=== PATIENT | female | born 1965 | race Caucasian/White ===

== ENCOUNTER 2021-02-18 21:20 | Emergency (ER) | payer OTHER ==
[~2021-02-18] VITALS: Ht 170.2 cm; Wt 129.3 kg
[2021-02-18 21:53] LABS: BASOPHILS ABSOLUTE AUTO 0.06 K/mm3 (0.00-0.23); BASOPHILS PERCENT AUTO 0 % (0-2); EOSINOPHILS ABSOLUTE AUTO 0.08 K/mm3 (0.00-0.68); EOSINOPHILS PERCENT AUTO 0 % (0-6); IMMATURE GRAN ABSOLUTE AUTO 0.09 K/mm3 (0.00-0.10); IMMATURE GRAN PERCENT AUTO 1 % (0-1); LYMPHOCYTES ABSOLUTE AUTO 1.96 K/mm3 (0.84-5.20); LYMPHOCYTES PERCENT AUTO 11 % (21-46); MONOCYTES ABSOLUTE AUTO 1.13 K/mm3 (0.16-1.47); MONOCYTES PERCENT AUTO 6 % (4-13); Mean Corpuscular HGB 28.2 pg (26.0-34.0); Mean Corpuscular HGB Conc 33.3 g/dL (31.5-36.5); Mean Corpuscular Volume 85 fL (80-100); Mean Platelet Volume 9.8 fL (9.1-12.4); NEUTROPHILS ABSOLUTE AUTO 15.18 K/mm3 (1.96-9.15); NEUTROPHILS PERCENT AUTO 82 % (41-73); Platelet Count 487 K/mm3 (150-400); RDW Coefficient Variation 13.4 % (11.7-14.2); RDW Standard Deviation 41.2 fL (35.1-46.3); Red Blood Cell Count 4.97 M/mm3 (3.80-5.20)
[2021-02-18 22:10] LABS: Alanine Aminotransfer (ALT/SGP 709 U/L (12-78); Albumin, Blood 3.8 g/dL (3.4-5.0); Albumin/Globulin Ratio 0.9 (0.8-1.8); Alk Phos 343 U/L (50-136); Anion Gap 9 mmol/L (6-16); Aspartate Aminotrans (AST/SGOT 307 U/L (12-37); Bilirubin, Total 3.6 mg/dL (0.1-1.0); Blood Urea Nitrogen 19 mg/dL (8-24); Bun/Creatinine Ratio 15.4 (12.0-20.0); CO2, Blood 19 mmol/L (21-32); Calcium, Blood 9.4 mg/dL (8.5-10.1); Chloride, Blood 111 mmol/L (98-108); Creatinine, Blood 1.23 mg/dL (0.40-1.00); Globulin, Blood 4.2 g/dL (2.2-4.0); Glomerular Filtration Rate 48 (60-); Glucose, Blood 191 mg/dL (70-99); Potassium, Blood 3.5 mmol/L (3.5-5.5); Sodium, Blood 139 mmol/L (136-145)
[2021-02-19 03:50] LABS: Source, Urine Clean Catch
[2021-02-19 03:53] LABS: Blood, Urine 2+ (Neg); Glucose Qualitative, Urine Neg (Neg); Ketones, Urine Neg (Neg); Leukocyte Esterase, Urine 2+ (Neg); Nitrite, Urine Neg (Neg); Protein, Urine 2+ (Neg); Specific Gravity, Urine 1.015 (1.003-1.022); Urobilinogen, Urine 2+ (Normal)
[2021-02-19 04:08] LABS: Appearance, Urine Hazy (Clear); Bilirubin, Urine 1+ (Neg); Color, Urine Yellow (P-Yellow)
[2021-02-19 04:09] LABS: Bacteria Mod /hpf; Squamous Epithelial Cells Few /hpf (Few); White Blood Cells, Urine 50-100 /hpf (0-5)
[2021-02-19 04:53] LABS: Influenza A, PCR NEGATIVE (NEGATIVE); Influenza B, PCR NEGATIVE (NEGATIVE); Resp Syncytial Virus, PCR NEGATIVE (NEGATIVE); SARS-Cov-2 (COVID-19) PCR, MMC NEGATIVE (NEGATIVE)
== END 2021-02-19 04:49 | disposition short-term general hospital (02) ==
LOC: ER 21:20
PROVIDERS: Emergency Medicine; Physician Assistant
DX: K83.09 Other cholangitis (principal); I10 Essential (primary) hypertension; Z20.822 Contact with and (suspected) exposure to COVID-19
CPT/HCPCS: 0241U; 74177; 80053; 81001; 83690; 85025; 87086; 96365; 96366; 96375; 96376; 99285-25; J1170; J2543; J7030; J7120; Q9967

== ENCOUNTER → 2022-04-08 | Outpatient (CLI) | payer OTHER | END | disposition home or self-care (01) | LOC: LAB SHORT 16:36 → LAB 16:36 | DX: N39.0 Urinary tract infection, site not specified (principal) | CPT/HCPCS: 87086 ==

== ENCOUNTER → 2023-01-12 | Outpatient (CLI) | payer OTHER | LOC: LAB 15:20 → LAB SHORT 15:20 | DX: G89.4 Chronic pain syndrome (principal) | CPT/HCPCS: G0480 ==

== ENCOUNTER 2023-05-23 19:10 | Emergency (ER) | payer OTHER ==
[~2023-05-23] VITALS: Ht 170.2 cm; Wt 170.1 kg
[2023-05-23 19:53] LABS: BASOPHILS ABSOLUTE AUTO 0.04 K/mm3 (0.00-0.23); BASOPHILS PERCENT AUTO 1 % (0-2); EOSINOPHILS ABSOLUTE AUTO 0.28 K/mm3 (0.00-0.68); EOSINOPHILS PERCENT AUTO 3 % (0-6); Hematocrit 37.9 % (33.0-51.0); Hemoglobin 12.6 g/dL (11.5-16.0); IMMATURE GRAN ABSOLUTE AUTO 0.03 K/mm3 (0.00-0.10); IMMATURE GRAN PERCENT AUTO 0 % (0-1); LYMPHOCYTES ABSOLUTE AUTO 2.44 K/mm3 (0.84-5.20); LYMPHOCYTES PERCENT AUTO 30 % (21-46); MONOCYTES ABSOLUTE AUTO 0.43 K/mm3 (0.16-1.47); MONOCYTES PERCENT AUTO 5 % (4-13); Mean Corpuscular HGB 28.5 pg (26.0-34.0); Mean Corpuscular HGB Conc 33.2 g/dL (31.5-36.5); Mean Corpuscular Volume 86 fL (80-100); NEUTROPHILS ABSOLUTE AUTO 4.94 K/mm3 (1.96-9.15); NEUTROPHILS PERCENT AUTO 61 % (41-73); Platelet Count 334 K/mm3 (150-400); RDW Coefficient Variation 12.7 % (11.7-14.2); RDW Standard Deviation 39.6 fL (35.1-46.3); Red Blood Cell Count 4.42 M/mm3 (3.80-5.20); White Blood Cell Count 8.16 K/mm3 (4.00-11.30)
[2023-05-23 20:11] LABS: Albumin, Blood 3.4 g/dL (3.4-5.0); Albumin/Globulin Ratio 0.8 (0.8-1.8); Bilirubin, Total 0.6 mg/dL (0.1-1.0); Bun/Creatinine Ratio 25.9 (12.0-20.0); Calcium, Blood 8.8 mg/dL (8.5-10.1); Creatinine, Blood 0.85 mg/dL (0.40-1.00); Potassium, Blood 3.8 mmol/L (3.5-5.5); Total Protein, Blood 7.4 g/dL (6.4-8.2)
[2023-05-23 23:13] LABS: Source, Urine Voided
[2023-05-23 23:18] LABS: Bilirubin, Urine Neg (Neg); Blood, Urine Neg (Neg); Glucose Qualitative, Urine Neg (Neg); Ketones, Urine Neg (Neg); Leukocyte Esterase, Urine 2+ (Neg); Nitrite, Urine Neg (Neg); Protein, Urine Neg (Neg); Specific Gravity, Urine 1.015 (1.003-1.022); Urobilinogen, Urine 1+ (Normal)
[2023-05-23 23:36] LABS: Appearance, Urine Hazy (Clear); Color, Urine Yellow (P-Yellow)
[2023-05-23 23:37] LABS: Bacteria Few /hpf; Red Blood Cells, Urine Not Seen /hpf (0-2); Squamous Epithelial Cells Rare /hpf (Few)
[2023-05-24] MEDS ORDERED: CEFP200 PO (00:33)
[2023-05-24 00:45] VITALS: BP 160/79
== END 2023-05-24 01:05 | disposition home or self-care (01) ==
LOC: ER 19:10
PROVIDERS: Student in an Organized Health Care Education/Training Program
DX: N12 Tubulo-interstitial nephritis, not specified as acute or chronic (principal); Z88.2 Allergy status to sulfonamides; I10 Essential (primary) hypertension
CPT/HCPCS: 74177; 80053; 81001; 83690; 85025; 87086; 96374; 99284-25; A9270; J1885; Q9967

== ENCOUNTER 2024-05-14 09:11 | Day surgery (SDC) | payer OTHER ==
[~2024-05-14] VITALS: Ht 165.1 cm; Wt 128.5 kg
[2024-05-14] VITALS (13 sets, daily range): BP systolic 98–157; BP diastolic 61–121
[~2024-05-14 09:11] MED LIST: CEFP200 PO; Cyclobenzaprine5 MG PO; LOSA50 PO; MELO7.5 PO; Norco 5-325 Ta1 EACH PO; SUMA25 PO; TOPI50 PO
[2024-05-14] MEDS ORDERED: CeFAZolin Sodium 3,000 MG in NS 100 ML IV SCH (09:20)
[2024-05-14] MEDS ORDERED: Lactated Ringer's 1,000 ML IV SCH ×2 (09:20→14:40)
--- NOTE | 2024-05-14 10:49 | NUR ---
Ambulatory in Day Surgery History, Chart, Medications and Allergies reviewed before start of procedure.Lungs clear T/O to Auscultation. Patient confirms NPO status and agrees with scheduled surgery. Patient reports completing Chlorhexadine shower X2 prior to admission to hospital.Surgical site prepped with 2% Chlorhexidine cloth wipe.
[2024-05-14] MEDS ORDERED: Bupivacaine 0.5% Inj 50 ML Vial ONE (11:01)
[2024-05-14] MEDS ORDERED: FentaNYL Citrate 50 MCG/ML 2 ML Injection ONE ×2 (11:21→14:36)
[2024-05-14] MEDS ORDERED: Midazolam HCl 1MG / ML 2ML Vial ONE (11:21)
[2024-05-14] MEDS ORDERED: propofoL 20 ML IV ONE (11:24)
[2024-05-14] MEDS ORDERED: HYDROmorphone HCl/Pf 1MG SYR ONE (13:42)
[2024-05-14] MEDS ORDERED: Dexamethasone Sod Phos 10 MG/ML 1ML VIAL ONE (13:45)
[2024-05-14] MEDS ORDERED: Ketorolac Tromethamine 30mg Vial ONE (13:45)
[2024-05-14] MEDS ORDERED: Sugammadex Sodium 200 MG/2ML SDV (100 MG/ML) ONE (13:45)
[2024-05-14] MEDS ORDERED: Ondansetron HCl 2 MG / ML 2ML Vial ONE (13:45)
[2024-05-14] MEDS ORDERED: Lidocaine HCl 2% 20 ML MDV ONE (13:45)
[2024-05-14] MEDS ORDERED: Rocuronium Bromide 10 MG/ML 5ML Injection IV ONE (13:45)
[2024-05-14] MEDS ORDERED: Naloxone HCl 0.4MG / ML 1ML Vial IV PRN (14:40)
[2024-05-14] MEDS ORDERED: OxyCODONE HCL 5 MG TAB PO PRN ×3 (14:40→14:55)
[2024-05-14] MEDS ORDERED: Metoclopramide HCl 5MG / ML 2ML Vial IV PRN (14:40)
[2024-05-14] MEDS ORDERED: HYDROmorphone HCl/Pf 1MG SYR IV PRN (14:45)
[2024-05-14] MEDS ORDERED: DiphenhydrAMINE HCL 25 MG Cap PO PRN (14:45)
[2024-05-14] MEDS ORDERED: SUMAtriptan Succinate 25 MG Tab PO PRN (14:50)
[2024-05-14] MEDS ORDERED: Cyclobenzaprine HCl 10 MG Tab PO PRN (14:50)
[2024-05-14] MEDS ORDERED: Simethicone 80 MG Chew PO PRN (14:50)
[2024-05-14] MEDS ORDERED: Ibuprofen 400 MG Tab PO SCH (16:00)
[2024-05-14] MEDS ORDERED: Ketorolac Tromethamine 15mg Vial IV SCH ×2 (18:00→22:00)
[2024-05-14] MEDS ORDERED: Acetaminophen 500 MG Tab PO SCH (18:00)
--- NOTE | 2024-05-14 18:42 | NUR ---
SUMMARY NO ACUTE CHANGES SINCE ARRIVING TO FLOOR. MEDICATED PER ORDERS FOR PAIN. PT HAS BEEN UP TO VOID. ATE DINNER. NOW TALKING ON PHONE. CALL LIGHT IN REACH.
[2024-05-14] MEDS ORDERED: Topiramate 25 MG Tab PO SCH (21:00)
[2024-05-15 05:22] VITALS: BP 126/73
[2024-05-15 06:16] LABS: BASOPHILS ABSOLUTE AUTO 0.01 K/mm3 (0.00-0.23); BASOPHILS PERCENT AUTO 0 % (0-2); EOSINOPHILS PERCENT AUTO 0 % (0-6); Hematocrit 34.7 % (33.0-51.0); Hemoglobin 11.8 g/dL (11.5-16.0); IMMATURE GRAN ABSOLUTE AUTO 0.06 K/mm3 (0.00-0.10); IMMATURE GRAN PERCENT AUTO 0 % (0-1); LYMPHOCYTES ABSOLUTE AUTO 1.55 K/mm3 (0.84-5.20); LYMPHOCYTES PERCENT AUTO 10 % (21-46); MONOCYTES ABSOLUTE AUTO 0.84 K/mm3 (0.16-1.47); MONOCYTES PERCENT AUTO 6 % (4-13); Mean Corpuscular HGB 29.3 pg (26.0-34.0); Mean Corpuscular Volume 86 fL (80-100); Mean Platelet Volume 9.7 fL (9.1-12.4); NEUTROPHILS ABSOLUTE AUTO 12.51 K/mm3 (1.96-9.15); NEUTROPHILS PERCENT AUTO 84 % (41-73); Platelet Count 317 K/mm3 (150-400); RDW Standard Deviation 37.9 fL (35.1-46.3); Red Blood Cell Count 4.03 M/mm3 (3.80-5.20); White Blood Cell Count 14.97 K/mm3 (4.00-11.30)
--- NOTE | 2024-05-15 06:20 | NUR ---
SHIFT SUMMARY POD1- ROBOTIC LAP HYSTER. x4 LAP SITES W/GLUE C,D,I NO DRAINAGE NOTED. REPORTS 5/10 PAIN PRIOR TO MEDS THEN 2/10 PAIN IN LOW ABD POST MEDS. USING HEATING PAD ALSO FOR PAIN RELIEF. SCANT BLOOD ON CORRIE PAD. HAS VOIDED MULTIPLE TIMES, TOLERATING PO. DENIES N/V. HAD MIGRAINE @[facility], MEDICATED PER EMAR & DENIES MIGRAINE THIS AM. CALL LIGHT IN REACH, WILL MONITOR.
[2024-05-15 06:47] LABS: Bun/Creatinine Ratio 19.5 (12.0-20.0); Calcium, Blood 8.5 mg/dL (8.5-10.1); Creatinine, Blood 0.97 mg/dL (0.40-1.00); Potassium, Blood 4.2 mmol/L (3.5-5.5)
[2024-05-15 07:41] VITALS: BP 119/64
[2024-05-15] MEDS ORDERED: Losartan Potassium 50 MG Tab PO SCH (09:00)
[2024-05-15] MEDS ORDERED: Enoxaparin 40 MG/0.4 ML SYR SC SCH (09:00)
[2024-05-15] MEDS ORDERED: Polyethylene Glycol 3350 17 gm PO SCH (09:00)
[2024-05-15] MEDS ORDERED: Topiramate 25 MG Tab PO SCH (09:00)
--- NOTE | 2024-05-15 11:17 | NUR ---
DISCHARGING REVIEWED DC INSTRUCTIONS W/PT. VERBALIZED UNDERSTANDING. PROVIDED CORRIE BOTTLE PER DR SHELBY'S VERBAL INSTRUCTION AND INSTRUCTED PT ON USE. PT ATTEMPTING TO CONTACT RIDE HOME. CALL LIGHT IN REACH.
[2024-05-15 14:11] VITALS: BP 133/77
--- NOTE | 2024-05-15 14:19 | NUR ---
DISCHARGING PT IV DC'D, CATHETER INTACT. PT'S FAMILY UNABLE TO DATABASE ADMINISTRATION PROJECT MANAGER PT. DEVYN, ENVIRONMENTAL ATTORNEY, ARRANGED [facility]AX[facility] RIDE FOR PATIENT. PT LEFT UNIT IN WC W/POSSESSIONS AND DC PAPERWORK IN HAND TO MEET TAXI OUTSIDE.
== END 2024-05-15 14:21 | disposition home or self-care (01) ==
LOC: ORSCMMR 09:11 → ORD 10:30 → ORSCMMR 10:30 → ORD 12:00 → SURS 15:05 → ORSCMMR 05-15 14:21
PROVIDERS: Obstetrics & Gynecology
PROC: 0UT9FZZ Resection of Uterus, Via Natural or Artificial Opening With Percutaneous Endoscopic Assistance (ICD-10-PCS; principal; 2024-05-14 10:30)
PROC: 0UT7FZZ Resection of Bilateral Fallopian Tubes, Via Natural or Artificial Opening With Percutaneous Endoscopic Assistance (ICD-10-PCS; principal; 2024-05-14 10:30)
PROC: 0UT2FZZ Resection of Bilateral Ovaries, Via Natural or Artificial Opening With Percutaneous Endoscopic Assistance (ICD-10-PCS; principal; 2024-05-14 10:30)
DX: D25.2 Subserosal leiomyoma of uterus (principal); R10.2 Pelvic and perineal pain; N80.03 Adenomyosis of the uterus; N73.6 Female pelvic peritoneal adhesions (postinfective); I10 Essential (primary) hypertension; E66.01 Morbid (severe) obesity due to excess calories; Z68.42 Body mass index [BMI] 45.0-49.9, adult
CPT/HCPCS: 36415; 80048; 85025; 88307; 94762; A9270; J0690; J1100; J1170; J1650; J1885; J2250; J2405; J2704; J3010; J7120

== ENCOUNTER 2025-06-18 15:54 | Inpatient (IN) | payer OTHER ==
[~2025-06-18] VITALS: Ht 165.1 cm; Wt 89.6 kg
[2025-06-18] MEDS ORDERED: NS 1,000 ML IV SCH (16:40)
[2025-06-18 17:33] LABS: BASOPHILS ABSOLUTE AUTO 0.03 K/mm3 (0.00-0.23); BASOPHILS PERCENT AUTO 0 % (0-2); EOSINOPHILS ABSOLUTE AUTO 0.00 K/mm3 (0.00-0.68); EOSINOPHILS PERCENT AUTO 0 % (0-6); Hematocrit 40.3 % (33.0-51.0); Hemoglobin 13.8 g/dL (11.5-16.0); IMMATURE GRAN ABSOLUTE AUTO 0.06 K/mm3 (0.00-0.10); IMMATURE GRAN PERCENT AUTO 0 % (0-1); LYMPHOCYTES ABSOLUTE AUTO 0.91 K/mm3 (0.84-5.20); LYMPHOCYTES PERCENT AUTO 7 % (21-46); MONOCYTES ABSOLUTE AUTO 0.64 K/mm3 (0.16-1.47); MONOCYTES PERCENT AUTO 5 % (4-13); Mean Corpuscular HGB Conc 34.2 g/dL (31.5-36.5); Mean Corpuscular Volume 87 fL (80-100); NEUTROPHILS ABSOLUTE AUTO 12.44 K/mm3 (1.96-9.15); NEUTROPHILS PERCENT AUTO 88 % (41-73); NRBC ABSOLUTE 0.00 K/mm3 (0.00-0.02); NRBC Auto 0.0 /100 WBC (0.0-0.2); Platelet Count 293 K/mm3 (150-400); RDW Coefficient Variation 12.0 % (11.7-14.2); RDW Standard Deviation 38.8 fL (35.1-46.3)
[2025-06-18] MEDS ORDERED: Morphine Sulfate 4 MG/1 ML Injection IV ONE (17:55)
[2025-06-18] MEDS ORDERED: Ketorolac Tromethamine 15mg Vial IV ONE (17:55)
[2025-06-18] MEDS ORDERED: CefTRIAXone Sodium 1,000 MG in NS 100 ML IV ONE (18:00)
[2025-06-18 18:02] LABS: Alanine Aminotransfer (ALT/SGP 30.0 U/L (12-78); Albumin, Blood 3.5 g/dL (3.4-5.0); Albumin/Globulin Ratio 0.7 (0.8-1.8); Anion Gap 13.0 mmol/L (3-11); Aspartate Aminotrans (AST/SGOT 18.0 U/L (12-37); Bilirubin, Total 1.0 mg/dL (0.1-1.0); Blood Urea Nitrogen 23.0 mg/dL (8-24); CO2, Blood 18.0 mmol/L (21-32); Calcium, Blood 9.2 mg/dL (8.5-10.1); Chloride, Blood 106.0 mmol/L (98-108); Creatinine, Blood 1.13 mg/dL (0.40-1.00); Globulin, Blood 4.8 g/dL (2.2-4.0); Glucose, Blood 119.0 mg/dL (70-99); Potassium, Blood 3.5 mmol/L (3.5-5.5); Sodium, Blood 133.0 mmol/L (136-145); Total Protein, Blood 8.3 g/dL (6.4-8.2)
[2025-06-18] MEDS ORDERED: TOPI50 PO (20:17)
[2025-06-18] MEDS ORDERED: CENTRUM SILVER1 EAC2 PO (20:19)
[2025-06-18] MEDS ORDERED: OXYC5 PO (20:19)
[2025-06-18] MEDS ORDERED: CYCL10 PO (23:18)
[2025-06-18] MEDS ORDERED: Ondansetron HCl 2 MG / ML 2ML Vial IV PRN (23:30)
[2025-06-19 00:13] VITALS: BP 121/68
[2025-06-19 04:16] VITALS: BP 87/66
[2025-06-19 04:21] VITALS: BP 115/67
--- NOTE | 2025-06-19 04:22 | NUR ---
PT A&O X4, ADMITTED FROM ED WITH FACIAL CELLULITIS. STARTED ON RIGHT SIDE, INCLUDING SWOLLEN EYE, NOW MIGRATING TO LEFT SIDE. PAIN MEDICATED WITH OXYCODONE AND TYLENOL. PT VS WNL, B/P SLIGHTLY LOW, PT STATES SHE DOESN'T TAKE TOPAMAX ANYMORE, BUT THIS WAS ON MED LIST, WILL COMMUNICATE THIS TO MD ON DAY SHIFT. PT REMAINS ON IVF AND IVABX. INDEPENDENT WITH MOBILITY. PLAN FOR IVABX. USES CALL SYSTEM APPROPRIATELY.
[2025-06-19 07:56] VITALS: BP 121/73
[2025-06-19] MEDS ORDERED: Enoxaparin 40 MG/0.4 ML SYR SC SCH (09:00)
[2025-06-19 15:52] VITALS: BP 124/71
[2025-06-19] MEDS ORDERED: NS 250 ML IV PRN (17:40)
[2025-06-19] MEDS ORDERED: CefTRIAXone Sodium 1,000 MG in NS 100 ML IV SCH (18:00)
--- NOTE | 2025-06-19 18:37 | NUR ---
SHIFT SUMMARY: NO EVENTS OR CHANGES WITH THE PATIENT THROUGHOUT THE SHIFT. CONTINUES TO HAVE FACIAL PAIN; PAIN MEDICATION PER EMAR NOT EFFECTIVE AT TIMES. HYDROXYZINE EFFECTIVE FOR FACIAL ITCHING. CONTINUES TO GET IV ANTIBIOTICS; DR. LUIS MADE MARKINGS ON PATIENT'S FACE. PATIENT ALERT IN HER ROOM, CALL LIGHT WITHIN REACH, LAYING IN BED, NO SIGNS OR SYMPTOMS OF DISTRESS, PLAN OF CARE ONGOING.
[2025-06-19 19:42] VITALS: BP 110/64
--- NOTE | 2025-06-20 03:48 | NUR ---
SHIFT SUMMARY: PT IS AOX4. PT SLEPT THROUGH THE WHOLE SHIFT. MEDICATED PER EMAR. NO ACUTE CHANGES.
[2025-06-20 04:39] LABS: BASOPHILS ABSOLUTE AUTO 0.02 K/mm3 (0.00-0.23); BASOPHILS PERCENT AUTO 0 % (0-2); EOSINOPHILS ABSOLUTE AUTO 0.16 K/mm3 (0.00-0.68); EOSINOPHILS PERCENT AUTO 3 % (0-6); Hematocrit 33.7 % (33.0-51.0); Hemoglobin 11.6 g/dL (11.5-16.0); IMMATURE GRAN ABSOLUTE AUTO 0.02 K/mm3 (0.00-0.10); IMMATURE GRAN PERCENT AUTO 0 % (0-1); LYMPHOCYTES ABSOLUTE AUTO 2.84 K/mm3 (0.84-5.20); LYMPHOCYTES PERCENT AUTO 46 % (21-46); MONOCYTES ABSOLUTE AUTO 0.46 K/mm3 (0.16-1.47); MONOCYTES PERCENT AUTO 8 % (4-13); Mean Corpuscular HGB Conc 34.4 g/dL (31.5-36.5); Mean Corpuscular Volume 88 fL (80-100); NEUTROPHILS ABSOLUTE AUTO 2.63 K/mm3 (1.96-9.15); NEUTROPHILS PERCENT AUTO 43 % (41-73); NRBC ABSOLUTE 0.00 K/mm3 (0.00-0.02); NRBC Auto 0.0 /100 WBC (0.0-0.2); Platelet Count 239 K/mm3 (150-400); RDW Coefficient Variation 12.3 % (11.7-14.2); RDW Standard Deviation 39.6 fL (35.1-46.3)
[2025-06-20 04:58] VITALS: BP 123/80
[2025-06-20 04:59] LABS: Anion Gap 9.0 mmol/L (3-11); Blood Urea Nitrogen 15.0 mg/dL (8-24); CO2, Blood 21.0 mmol/L (21-32); Calcium, Blood 8.4 mg/dL (8.5-10.1); Chloride, Blood 114.0 mmol/L (98-108); Creatinine, Blood 0.83 mg/dL (0.40-1.00); Glucose, Blood 87.0 mg/dL (70-99); Potassium, Blood 3.3 mmol/L (3.5-5.5); Sodium, Blood 141.0 mmol/L (136-145)
[2025-06-20 07:44] VITALS: BP 114/69
[2025-06-20 19:08] VITALS: BP 104/65
--- NOTE | 2025-06-20 19:20 | NUR ---
SHIFT SUMMARY: NO EVENTS OR CHANGES WITH THE PATIENT THROUGHOUT THE SHIFT. IN HER BED, ALERT, CALLS APPROPRIATELY, CALL LIGHT WITHIN REACH, NO SIGNS OR SYMPTOMS OF DISTRESS, PLAN OF CARE ONGOING.
[2025-06-21 05:04] VITALS: BP 133/72
--- NOTE | 2025-06-21 06:14 | NUR ---
SHIFT SUMMARY PT SLEPT INTERMITTENTLY DURING THE NIGHT. UP INDEPENDENTLY IN ROOM. MEDICATED FOR PAIN AND ITCHING PER EMAR. IV ANTIBIOTICS CONTINUE PER ORDER. REDNESS TO FACE WITHIN OUTLINES- RIGHT SIDE REDNESS MUCH IMPROVED.
[2025-06-21 07:34] VITALS: BP 123/74
--- NOTE | 2025-06-21 16:50 | NUR ---
SHIFT SUMMARY: NO EVENTS OR CHANGES WITH THE PATIENT THROUGHOUT THE SHIFT. CONTINUES TO GET IV ANTIBIOTICS, AND PRNS FOR PAIN/ITCHING. CALL LIGHT WITHIN REACH, NO SIGNS OR SYMPTOMS OF DISTRESS, PLAN OF CARE ONGOING.
[2025-06-21 16:54] VITALS: BP 114/75
[2025-06-21 19:19] VITALS: BP 114/73
[2025-06-22 02:40] VITALS: BP 114/68
--- NOTE | 2025-06-22 06:10 | NUR ---
SHIFT SUMMARY CELLULITIS CONTINUES TO FACE. PT STATES SOME PAIN RELIEF USING ICE COLD WASHCLOTH TO FACE. MEDICATED FOR FACE AND BACK PAIN PER EMAR. PT SLEPT LONG INTERVALS DURING THE NIGHT. UP INDEPENDENTLY IN ROOM.
[2025-06-22 07:25] VITALS: BP 118/72
[2025-06-22 16:27] VITALS: BP 117/73
[2025-06-22 19:43] VITALS: BP 118/70
[2025-06-23 02:08] VITALS: BP 116/79
[2025-06-23 05:06] LABS: BASOPHILS ABSOLUTE AUTO 0.04 K/mm3 (0.00-0.23); BASOPHILS PERCENT AUTO 1 % (0-2); EOSINOPHILS ABSOLUTE AUTO 0.24 K/mm3 (0.00-0.68); EOSINOPHILS PERCENT AUTO 4 % (0-6); Hematocrit 35.9 % (33.0-51.0); Hemoglobin 12.0 g/dL (11.5-16.0); IMMATURE GRAN ABSOLUTE AUTO 0.05 K/mm3 (0.00-0.10); IMMATURE GRAN PERCENT AUTO 1 % (0-1); LYMPHOCYTES ABSOLUTE AUTO 3.32 K/mm3 (0.84-5.20); LYMPHOCYTES PERCENT AUTO 49 % (21-46); MONOCYTES ABSOLUTE AUTO 0.39 K/mm3 (0.16-1.47); MONOCYTES PERCENT AUTO 6 % (4-13); Mean Corpuscular HGB Conc 33.4 g/dL (31.5-36.5); Mean Corpuscular Volume 88 fL (80-100); NEUTROPHILS ABSOLUTE AUTO 2.80 K/mm3 (1.96-9.15); NEUTROPHILS PERCENT AUTO 41 % (41-73); NRBC ABSOLUTE 0.00 K/mm3 (0.00-0.02); NRBC Auto 0.0 /100 WBC (0.0-0.2); Platelet Count 327 K/mm3 (150-400); RDW Coefficient Variation 11.8 % (11.7-14.2); RDW Standard Deviation 38.0 fL (35.1-46.3)
[2025-06-23 05:25] LABS: Anion Gap 8.0 mmol/L (3-11); Blood Urea Nitrogen 15.0 mg/dL (8-24); CO2, Blood 25.0 mmol/L (21-32); Calcium, Blood 8.6 mg/dL (8.5-10.1); Chloride, Blood 112.0 mmol/L (98-108); Creatinine, Blood 0.86 mg/dL (0.40-1.00); Glucose, Blood 85.0 mg/dL (70-99); Potassium, Blood 3.9 mmol/L (3.5-5.5); Sodium, Blood 141.0 mmol/L (136-145)
--- NOTE | 2025-06-23 06:17 | NUR ---
SHIFT SUMMARY PT SLEPT LONG INTERVALS DURING THE NIGHT. MEDICATED FOR PAIN AND ITCHING PER EMAR. PT INDEPENDENT IN ROOM. CELLULITIS TO FACE CONTINUES TO IMPROVE.
[2025-06-23 07:53] VITALS: BP 122/72
[2025-06-23] MEDS ORDERED: AMOCLA875 PO (14:30)
--- NOTE | 2025-06-23 16:44 | NUR ---
DISCHARGE SUMMARY PT DISCHARGED BY PHYSICIAN. DISCUSSED INSTRUCTIONAL MATERIAL WITH PT AT BEDSIDE. IV REMOVED AND SITE DRESSED. VERIFIED PT HAS RIDE BENEFITS VIA A. TAXI PICKUP SCHEDULED FOR 1530 AT ED ENTRANCE. GIVEN COPY OF RX LIST, WRITTEN EDUCATION AND PROVIDER INSTRUCTIONS, AND VERIFIED BELONGINGS ARE WITH PT. TRANSPORT TO [facility] VIA WHEELCHAIR PROVIDED BY [facility].
== END 2025-06-23 15:21 | disposition home or self-care (01) | DRG 603 ==
LOC: ER 15:54 → ERHOLD 15:55 → MEDS 15:55
PROVIDERS: Internal Medicine; Student in an Organized Health Care Education/Training Program; ADMIT Internal Medicine
DX: A46 Erysipelas (principal); L03.211 Cellulitis of face; E87.1 Hypo-osmolality and hyponatremia; N18.2 Chronic kidney disease, stage 2 (mild); G43.909 Migraine, unspecified, not intractable, without status migrainosus; E66.01 Morbid (severe) obesity due to excess calories; M54.16 Radiculopathy, lumbar region; I10 Essential (primary) hypertension; G89.29 Other chronic pain; E66.9 Obesity, unspecified; Z98.84 Bariatric surgery status; Z88.2 Allergy status to sulfonamides; Z88.8 Allergy status to other drugs, medicaments and biological substances; Z90.49 Acquired absence of other specified parts of digestive tract; Z90.710 Acquired absence of both cervix and uterus; H62.41 Otitis externa in other diseases classified elsewhere, right ear; Z90.722 Acquired absence of ovaries, bilateral; Z90.89 Acquired absence of other organs; H60.11 Cellulitis of right external ear; Z79.899 Other long term (current) drug therapy; Z68.35 Body mass index [BMI] 35.0-35.9, adult
CPT/HCPCS: 36415; 80048; 80053; 83605; 85025; 87040; 93005; 93010; 96361; 96365; 96375; 99285-25; A9270; J0696; J1650; J1885; J2270; J2405; J7030; J7050; J7120